=== PATIENT | female | born 1975 | race Caucasian/White ===

== ENCOUNTER 2016-06-12 13:25 | Observation (INO) | payer OTHER ==
[~2016-06-12] VITALS: Ht 162.6 cm; Wt 84.0 kg
[~2016-06-12 13:25] MED LIST: ESTRADIOL2 MG PO; VICODIN EQUIVAL1 TAB PO
--- NOTE | 2016-06-12 16:05 | DIAGNOSTIC IMAGING REPORT ---
PROCEDURE: US ABDOMEN ULTRASOUND-LIMITED INDICATION: RUQ PAIN TECHNIQUE: Delgadillo scale and color Doppler sonographic images of the abdomen were obtained without comparison. COMPARISON: Abdominal CT dated 12/24/2015 FINDINGS: The liver is mildly enlarged and demonstrates increased echogenicity. No mass or intrahepatic biliary dilatation. The gallbladder is contracted. The wall is normal thickness measuring 1.6 mm No pericholecystic fluid or Aleman sign. The extrahepatic common duct is normal measuring 2.1 mm The visualized pancreas is normal without ductal dilatation or peripancreatic fluid collection. The abdominal aorta is normal in its course and caliber. The retrohepatic inferior vena cava is patent. There is appropriate hepatopetal flow in the portal vein. The right kidney measures 10.2 cm in length. There is an 11 mm calculus in the inferior pole of the right kidney. There is no perihepatic or perisplenic ascites. IMPRESSION: 1. Fatty liver. 2. 11 mm right renal calculus.
--- NOTE | 2016-06-12 17:54 | DIAGNOSTIC IMAGING REPORT ---
PROCEDURE: ABDOMEN/PELVIS WITH CONTRAST CLINICAL INDICATION: ABDOMINAL PAIN TECHNIQUE: 125 ml of Isovue 300 were injected intravenously and axial images were obtained of the abdomen and pelvis with sagittal and coronal reformations. COMPARISON: 12/24/2015 FINDINGS: ABDOMEN: Clear lung bases. Normal sized heart. No hiatal hernia. Coarse, nonobstructing 8 mm lower pole right intrarenal calcification. Small collection of punctate lower pole calcifications along the right mid pole calyces. The gallbladder is partially decompressed. No pericholecystic inflammation. There is a tubal ligation clip anterior to the liver. A splenule is seen in the splenic hilum. Surgical staple lines are seen in the left retroperitoneum. Moderate amount of retained solid stool is present in the cecum and proximal colon. No ascending colon diverticulosis or pericolonic inflammation. Normal appendix. The liver, adrenal glands, left kidney, pancreas and spleen are normal. The abdominal aorta is normal in its course and caliber. No atherosclerosis. There are no suspicious calcifications, retroperitoneal adenopathy or masses. The stomach, upper bowel loops, and mesentery are normal. Intact anterior abdominal wall. No free fluid or inflammation. PELVIS: The pelvic small bowel loops are normal. There is a rectosigmoid anastomoses with trace perirectal fat stranding. Tiny perirectal lymph nodes are seen. The rectum is decompressed. Prior tubular, peripherally enhancing fluid collection has resolved. Surgically absent uterus. Residual tubal ligation clip seen. Normal amount of stool in the colon and rectum. The urinary bladder, and pelvic vessels are normal. No adenopathy, free fluid, or pelvic mass. Intact osseous structures. IMPRESSION: 1. No acute process. 2. Partially decompressed gallbladder without inflammation. 3. Moderate amount of retained proximal colon stool. No evidence of colitis or diverticulitis. 4. Sigmoid resection with rectosigmoid reanastomosis. A few residual postsurgical changes are present (lymph nodes and slight fat stranding). 5. Multiple nonobstructing right intrarenal calculi. 6. Discussed with Dr. Madrid in the emergency room. All CT scans at this facility use dose modulation, iterative reconstruction, and/or weight-based dosing when appropriate to reduce radiation dose to as low as reasonably achievable.
--- NOTE | 2016-06-12 18:05 | ED CLINICAL REPORT ---
Clinical Report - Physicians/Mid Levels [facility] [address] [place] [address] 06/12/2016 13:25 Patient: RON GRULLON Time Seen: 14:10 Jun 12 2016. Arrived- By private vehicle. Historian- patient. CPT: ER phys charges level 5 (#[id number]). HISTORY OF PRESENT ILLNESS Chief Complaint: ABDOMINAL PAIN. At its maximum, severity described as 6 / 10. When seen in the E.D., severity described as 6 / 10. Modifying factors- worsened by movement and food. Not relieved by anything. It is described as "pain" and it is described as located in the right upper quadrant and radiating to the upper back and to the right shoulder. 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 Describes the quality as "pain" and ( constant). Relates location as in the right upper quadrant. Provoking / relieving factors: worsened by movement and deep breaths; (better lying on right side, heat). Last oral intake by patient was (eat:1230; drink-1315). and is still present. The patient has had nausea and loss of appetite. No vomiting or diarrhea. Similar symptoms previously: None. Recent medical care: Not recently seen/assessed. REVIEW OF SYSTEMS No constipation, black stools, hematemesis, difficulty with urination or pain with urination. No urinary frequency, fever, sore throat or throat or chest pain. No difficulty breathing, cough, joint pain, skin rash or chills. No back pain, weakness, diabetic symptoms or easy bruising. Denies current . All systems otherwise negative, except as recorded above. PAST HISTORY 12" sigmoid colectomy 6 months ago for diverticulitis. Medications: Vitamin c Oral. [place] Thyroid Oral 60mg, daily. Estradiol Oral (Tablet 0.5 mg) 1 tablet, daily. Klor-Con M20 Oral. Magnesium Oral. Triamterene-HCTZ Oral (Tablet 37.5-25 mg) 1 tablet. Vitamin D Oral 10,000 units. Allergies: Ativan.(jittery) Cipro. Flagyl. PredniSONE. Side-Effect (rapid HR) Sulfa Antibiotics.(rash). SOCIAL HISTORY Never smoker. No alcohol use or drug use. ADDITIONAL NOTES The nursing notes have been reviewed. PHYSICAL EXAM Vital Signs: 06/12/2016 13:34 BP: 125/78. HR: 61. RR: 18. O2 saturation: 100%. Temp: 98.5 F. Pain level now: 7/10. Appearance: Alert. Patient in mild distress. Eyes: Eyes normal inspection. ENT: Pharynx normal. Neck: Normal inspection. CVS: Normal heart rate and rhythm. Heart sounds normal. Pulses normal. Respiratory: No respiratory distress. Breath sounds normal. Chest nontender. Abdomen: Soft. Moderate tenderness in the right upper quadrant with guarding present. Positive Aleman's sign. Abnormal bowel sounds: diminished. No mass. Back: Normal inspection. No CVA tenderness. Skin: Skin warm. Normal skin color. No rash. Extremities: Extremities exhibit normal ROM. No calf tenderness. No lower extremity edema. Neuro: Oriented X 3. No motor deficit. No sensory deficit. LABS, X-RAYS, AND EKG Abdominal CT: Appendix normal. No diverticulitis. Colectomy noted. Moderate retained stool. GB contracted: No apparent abnormalities. Abdominal Sonogram: No acute disease. Laboratory Tests: UA-Culture if indicated: (VICKIE: 06/12/2016 13:50) ( MsgRcvd 06/12/2016 14:39) Final results Test Result Flag Units (Reference) URINE COLOR YELLOW URINE APPEARANCE CLEAR URINE GLUCOSE NEGATIVE (NEGATIVE) URINE BILIRUBIN NEGATIVE (NEGATIVE) URINE KETONE NEGATIVE (NEGATIVE) URINE SPECIFIC GRAVITY 1.010 (1.010-1.030) URINE PH 6.0 (5.0-8.0) URINE PROTEIN NEGATIVE (NEGATIVE) URINE UROBILINOGEN 0.2 EU/dL (0.2-1.0) URINE NITRITE NEGATIVE (NEGATIVE) URINE BLOOD NEGATIVE (NEGATIVE) URINE LEUK ESTERASE NEGATIVE (NEGATIVE) URINE RBC NONE SEEN rbc/hpf (0-1) URINE WBC 0-1 wbc/hpf (0-1) URINE EPITHELIAL CELLS 3-5 EPI/hpf (0-5) URINE BACTERIA FEW (1+) (NONE SEEN) URINE COMMENT CULT NOT INDICATED FEW YEAST/HPFURINE CULTURES ARE SET-UP BASED ON THE FOLLOWING CRITERIA:POSITIVE NITRITEPOSITIVE LEUKOCYTE ESTERASEGREATER THAN 10 WHITE BLOOD CELLSMODERATE (2+) OR GREATER BACTERIA CBC w Diff: (VICKIE: 06/12/2016 13:50) ( MsgRcvd 06/12/2016 14:27) Final results Test Result Flag Units (Reference) WHITE BLOOD COUNT 6.7 K/uL (4.5-11.5) RED BLOOD COUNT 4.39 M/uL (4.00-5.20) HEMOGLOBIN 13.1 gm/dL (12.0-16.0) HEMATOCRIT 38.7 % (36.0-46.0) MEAN CELL VOLUME 88 fL (80-100) MEAN CORPUSCULAR HGB 30 pg (26-34) MEAN CORPUSCULAR HGB CONC 34 g/dL (31-37) RED CELL DISTRIBUTION WIDTH 13.9 % (11.6-14.8) PLATELET COUNT 168 K/uL (150-400) NEUTROPHIL % 62.4 % (50-75) LYMPH % 27.2 % (25-40) MONO % 5.4 % (3-14) EOSINOPHIL % 4.7 H % (0-4) BASOPHIL % 0.3 % (0-2) CMP: (VICKIE: 06/12/2016 13:50) ( MsgRcvd 06/12/2016 15:29) Final results Test Result Flag Units (Reference) LIPASE 238 U/L (73-393) AMYLASE 42 U/L (25-115) GLUCOSE 79 mg/dL (70-110) BUN 17 mg/dL (7-18) CREATININE 0.9 mg/dL (0.6-1.3) Estimated GFR >60 mL/min Estimated GFR- >60 mL/min Note: Persistent reduction over 3 months in eGFR<60 mL/min/1.73 m2 defines CKD. Patients with eGFR values>=60 mL/min/1.73 m2 may also have CKD if evidence ofpersistent proteinuria. Additional information may be foundat www.[email or web address].org. SODIUM 141 mmol/L (136-145) POTASSIUM 3.4 L mmol/L (3.5-5.1) CHLORIDE 104 mmol/L (98-107) CARBON DIOXIDE 29 mmol/L (21-32) CALCIUM 9.1 mg/dL (8.5-10.1) TOTAL PROTEIN 8.2 g/dL (6.4-8.2) ALBUMIN 4.1 g/dL (3.3-5.0) BILIRUBIN, TOTAL 0.3 mg/dL (0.0-1.0) ALKALINE PHOSPHATASE 47 U/L (46-116) AST (SGOT) 21 U/L (15-37) ALT (SGPT) 23 U/L (12-78) . PROGRESS AND PROCEDURES Course of Care: IV normal saline and Demerol 12.5 mg IV plus 25 mg IV Zofran 4 mg IV times 2 White GI cocktail: NO change. Pt clinically has too much clinical pain for discharge , will need admission and surgical evaluation. 18:05 06/12/16. Discussed with Dr Corbett: Requests HIDA scan and am upright with CBC. Discussed with Dr Licea and he will write orders on the patient but will have Dr Corbett as admitting Doctor. Patient/family counseled. Old medical records ordered. Disposition orders written. Disposition: Admitted to Acute Care. CLINICAL IMPRESSION Acute right upper quadrant abdominal pain of unknown cause. (Electronically signed by Zeus Madrid MD 06/13/2016 11:08)
--- NOTE | 2016-06-12 18:05 | ED ORDER SUMMARY ---
..... Patient: RON GRULLON OrderSheet [facility] VisitID: [id number] [place] [address] 41y, F Registration Date/Time: 06/12/2016 ORDER SHEET Weight: 77.1 kg (stated) Allergies: Ativan, PredniSONE, Sulfa Antibiotics, Cipro, Flagyl GENERAL ORDERS: US Abdomen Limited (Yes) Urgent (14:19 06/12/2016 Lefty FORBES) (Ack 14:21 IJurca ER Tech1) (16:01 IJurca ER Tech1) CBC w Diff Urgent (14:20 06/12/2016 Lefty FORBES) (Ack 14:21 IJurca ER Tech1) (Sent 14:21 IJurca ER Tech1) (14:47 EHassan R.N.) CMP Urgent (14:20 06/12/2016 Lefty FORBES) (Ack 14:21 IJurca ER Tech1) (Sent 14:21 IJurca ER Tech1) (14:47 EHassan R.N.) UA-Culture if indicated Urgent (14:20 06/12/2016 Lefty FORBES) (Ack 14:21 IJurca ER Tech1) (Sent 14:21 IJurca ER Tech1) (15:23 RCollier R.N.) Lipase Urgent (14:20 06/12/2016 Lefty FORBES) (Ack 14:21 IJurca ER Tech1) (Sent 14:21 IJurca ER Tech1) (14:47 EHassan R.N.) Amylase Urgent (14:20 06/12/2016 Lefty FORBES) (Ack 14:21 ACACIAurca ER Tech1) (Sent 14:21 IJurca ER Tech1) (14:47 EHassan R.N.) CT Abd/Pel w Cont (No) (N/A) Urgent (17:07 06/12/2016 Lefty FORBES) (Ack 17:09 ACACIAurca ER Tech1) (18:25 Rinku) MEDICATION ORDERS: GI Cocktail WHITE PO 50 mL (NOW) (15:31 06/12/2016 Lefty FORBES) (16:50 EHassan R.N.) IV FLUIDS: IV NS : initial bolus none -, then 250 mL/hr for 4h (NOW); Routine (14:19 06/12/2016 Lefty FORBES) (Ack 14:21 RCollier R.N.) (14:31 RCollier R.N.) Zofran IV 4 mg (NOW) (14:19 06/12/2016 Lefty FORBES) (Ack 14:21 RCollier R.N.) (14:31 RCollier R.N.) Demerol IV 12.5 mg (NOW) (14:20 06/12/2016 Lefty FORBES) (Ack 14:21 RCollier R.N.) (14:32 RCollier R.N.) Demerol IV 25 mg (NOW) (15:31 06/12/2016 Lefty FORBES) (16:49 EHassan R.N.) Zofran IV 4 mg (NOW) (19:04 06/12/2016 Lefty FORBES) (19:12 EHassan R.N.) ORDER SHEET NOTES: [Electronically signed by Rox Gresham R.N. (21:22 06/12/2016)] [Electronically signed by Zeus Madrid MD (11:08 06/13/2016)] [Electronically locked/signed by Rox Gresham R.N. (21:22 06/12/2016)]
--- NOTE | 2016-06-12 18:05 | ED NURSING NOTES ---
Clinical Report - Nurses [facility] [address] [place] [address] 06/12/2016 13:25 Patient: RON GRULLON TRIAGE Triage time 13:34. Acuity: LEVEL 3. Chief Complaint: ABDOMINAL PAIN and NAUSEA. Alert. SEJAL COMA SCORE: Sejal Coma Scale: 15- eyes open spontaneously (4); best verbal response- oriented x 4 (5); best motor response- obeys commands (6). --13:43 Bibi Lu R.N. 13:34 06/12/16. BP: 125/78. HR: 61. RR: 18. O2 saturation: 100% on room air. Temp: 98.5 F (oral). Pain level now: 09/07. --13:43 Bibi Lu R.N. Weight: 77.1 kg stated. Height/Length: 64 inches Per Patient. BMI: 29.2. --13:41 Bibi Lu R.N. Medications [place] Thyroid Oral 60mg, daily. Estradiol Oral (Tablet 0.5 mg) 1 tablet, daily. Klor-Con M20 Oral. Magnesium Oral. Triamterene-HCTZ Oral (Tablet 37.5-25 mg) 1 tablet. Vitamin D Oral 10,000 units. --13:36 Bibi Lu R.N. Vitamin c Oral. --13:36 Bibi Lu R.N. Medication/allergy information source: the patient. --13:43 Bibi Lu R.N. Allergies Ativan.(jittery) PredniSONE. Side-Effect (rapid HR) Sulfa Antibiotics.(rash) --13:36 Bibi Lu R.N. Cipro. Flagyl. --13:36 Bibi Lu R.N. History Arrived by private vehicle. Historian: patient. Unaccompanied. Primary physician (Kylah). Onset. 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 Describes the quality as "pain" and ( constant). Relates location as in the right upper quadrant. Provoking / relieving factors: worsened by movement and deep breaths; (better lying on right side, heat). Last oral intake by patient was (eat:1230; drink-1315). SOCIAL HX: Former smoker. No alcohol use or drug use. FALL RISK ASSESSMENT: Fall risk assessment completed. No fall risk identified. FUNCTIONAL ASSESSMENT: Functional assessment: no impairments noted. LEARNING NEEDS ASSESSMENT: The learning needs assessment revealed no barriers. --13:43 Bibi Lu R.N. PROBLEMS: C. Difficile Colitis. Seasonal allergic rhinitis. Ovarian Torsion. Abdominal Pain. Diverticulitis. Hypokalemia. Ovarian Cyst. --13:38 Bibi Lu R.N. ADDITIONAL SURGERIES: Abominal surgery. Back Surgery. Carpal Tunnel Surgery. Hysterectomy. Laminectomy. Oophorectomy. --13:38 Bibi Lu R.N. Assessment GENERAL / NEURO / PSYCH: The patient is awake and alert, is oriented and cooperative and appears uncomfortable. She has good eye contact. RESPIRATORY: Respirations not labored. SKIN: Skin is warm and dry. --13:43 Bibi Lu R.N. Interventions ID and allergy band on patient. To treatment room. --13:43 Bibi Lu R.N. PHYSICAL ASSESSMENT 13:44 06/12/16. Ambulatory to room. Patient gowned. GENERAL / NEURO / PSYCH: The patient is awake and alert, is oriented and cooperative and appears uncomfortable. She has good eye contact. RESPIRATORY: Respirations not labored. SKIN: Skin is warm and dry. --13:44 Bibi Lu R.N. NURSING PROGRESS NOTES 13:44 06/12/16. Patient gowned. Head of bed elevated. Call light placed in reach. Side rails up x 1. Bed placed in lowest position. Brakes of bed on. --13:44 Bibi Lu R.N. 13:45 06/12/2016 Site #1 started via IV in the right antecubital space with an 20g angiocath; one attempt. Blood drawn: rainbow set. Labeled in the presence of the patient and sent to the lab. Saline lock flushed. --13:50 Rox Gresham R.N. Patient ID band checked for patient name, birthdate and medical record number: patient confirmed. Blood samples drawn from the right antecubital space by nurse per protocol ; labeled in presence of the patient and sent to lab. Blood not drawn from IV site. Reassurance given. Two patient identifiers checked. Call light placed in reach. Side rails up x 1. Bed placed in lowest position. Brakes of bed on. --13:51 Rox Gresham R.N. Patient ID band checked for patient name and birthdate: patient confirmed. Instructions provided to collect clean catch urine and patient verbalized understanding. Clean catch urine collected with return of yellow-colored clear urine; odor is normal; sample sent to lab for urinalysis. Specimen labeled in the presence of the patient. --14:02 Josedebby Pascale <<STRICKEN ENTRY-- 14:53 Entelo @ bedside. Suicide precautions initiated. --14:54 Bibi Lu R.N. --END STRIKE>> Correction --18:31 Bibi Lu R.N. 16:49 06/12/2016 Demerol (Meperidine HCl) IVP 25 mg given over 1 minute(s) via site #1. Allergies verified and confirmed 5 rights. IV patency established. IV site checked: no pain, redness, or swelling. IV flushed thoroughly pre- and post-medication administration. IVP given by RN. --16:49 Rox Gresham R.N. 16:50 06/12/2016 GI Cocktail (Magnesium-Aluminum) PO 50 mL given. Allergies verified and confirmed 5 rights. --16:50 Rox Gresham R.N. 16:51 06/12/16. BP: 119/76. HR: 67. RR: 12. O2 saturation: 100% on room air. Temp: 98.6 F (oral). Pain level now: 09/07. --16:54 Rox Gresham R.N. Reassurance given. Reassessment after medication administered. She is calm and has had no adverse reaction. Overall patient status is the same- she states feels the same. GI / : The patient reports abdominal pain. Patient identifiers checked. Call light placed in reach. Side rails up x 1. --16:54 Rox Gresham R.N. 14:53 Entelo @ bedside. --18:31 Bibi Lu R.N. 18:29 Dr Miller at bedside. --18:30 Bibi Lu R.N. 17:12 06/12/2016 Demerol IVP Response: no adverse reaction symptoms are the same. The patient feels the same. --19:12 Rox Gresham R.N. 19:12 06/12/2016 Zofran (Ondansetron HCl) IVP 4 mg given over 2 minute(s) via site #1. Allergies verified and confirmed 5 rights. IV patency established. IV site checked: no pain, redness, or swelling. IV flushed thoroughly pre- and post-medication administration. IVP given by RN. --19:12 Rox Gresham R.N. 19:15 06/12/16. BP: 108/72. HR: 63. RR: 16. O2 saturation: 100% on room air. Temp: 98.5 F (oral). Pain level now: 08/08. --19:16 Rox Gresham R.N. Reassurance given. Reassessment after fluids administered. She is calm and has had no adverse reaction. GI / : The patient reports nausea. The patient reports abdominal pain. Two patient identifiers checked. Call light placed in reach. Side rails up x 1. Bed placed in lowest position. --19:16 Rox Gresham R.N. 19:44 06/12/2016 Zofran IVP Response: no adverse reaction symptoms are the same. The patient feels the same. --19:54 Rox Gresham R.N. 20:30 06/12/2016 IV Fluids IV NS Continued: at the rate of 250 mL/hr. 800 mL remaining bag #2. IV patency established. IV site checked: no pain, redness, or swelling. IV flushed thoroughly. --21:22 Rox Gresham R.N. DISPOSITION / DISCHARGE 14:26 06/12/2016 Started bag #1 1000 mL IV Fluids IV NS (Saline); at 250 mL/hr via site #1 via IV pump. Allergies verified and confirmed 5 rights. IV patency established. IV site checked: no pain, redness, or swelling. IV flushed thoroughly pre- and post-medication administration. --14:31 Maggie Magdaleno R.N. 14:27 06/12/2016 Zofran (Ondansetron HCl) IVP 4 mg given over 30 second(s) via site #1. Allergies verified and confirmed 5 rights. IV patency established. IV site checked: no pain, redness, or swelling. IV flushed thoroughly pre- and post-medication administration. IVP given by RN. --14:31 Maggie Magdaleno R.N. 14:29 06/12/2016 Demerol (Meperidine HCl) IVP 12.5 mg given over 60 second(s) via site #1. Allergies verified and confirmed 5 rights. IV patency established. IV site checked: no pain, redness, or swelling. IV flushed thoroughly pre- and post-medication administration. IVP given by RN. --14:32 Maggie Magdaleno R.N. 19:51 06/12/2016 Site #1 reassessed; patent, infusing well and no signs of infection or infiltration. Good blood return present. --19:51 Rox Gresham R.N. Departure time: 1952 PM. Condition at departure: stable. The goals identified in the patient's plan of care were met. Disposition: observation in Acute Care (1900 PM). Transported via stretcher by [facility] [facility]. Report was given to a nurse via a fax. Report included patient's care, treatment, medications, reviewed medication reconcilliation, and condition (including any recent changes or anticipated changes). All questions were answered. Report was acknowledged and care was transferred. Patient's personal items include: shirt, pants, dress, skirt, undergarments and shoes, phone and reinforcing rod layer given to pt, purse given to ; items were placed in belongings bag, given to the patient and transported with the patient. FALL RISK ASSESSMENT: Fall risk assessment completed. No fall risk identified. --19:53 Rox Gresham R.N. 19:51 06/12/16. BP: 108/72 (regular adult cuff) taken on the left arm, via an automated monitor, while lying. HR: 87. RR: 14. O2 saturation: 100% on room air. Temp: 98.5 F (oral). Pain level now: 08/08. --19:53 Rox Gresham R.N. Locked/Released at 06/12/2016 21:22 by Rox Gresham R.N.
--- NOTE | 2016-06-12 18:05 | ED CLINICAL REPORT ---
Clinical Report - Physicians/Mid Levels [facility] [address] [place] [address] 06/12/2016 13:25 Patient: RON GRULLON Time Seen: 14:10 Jun 12 2016. Arrived- By private vehicle. Historian- patient. CPT: ER phys charges level 5 (#[id number]). HISTORY OF PRESENT ILLNESS Chief Complaint: ABDOMINAL PAIN. At its maximum, severity described as 6 / 10. When seen in the E.D., severity described as 6 / 10. Modifying factors- worsened by movement and food. Not relieved by anything. It is described as "pain" and it is described as located in the right upper quadrant and radiating to the upper back and to the right shoulder. 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 Describes the quality as "pain" and ( constant). Relates location as in the right upper quadrant. Provoking / relieving factors: worsened by movement and deep breaths; (better lying on right side, heat). Last oral intake by patient was (eat:1230; drink-1315). and is still present. The patient has had nausea and loss of appetite. No vomiting or diarrhea. Similar symptoms previously: None. Recent medical care: Not recently seen/assessed. REVIEW OF SYSTEMS No constipation, black stools, hematemesis, difficulty with urination or pain with urination. No urinary frequency, fever, sore throat or throat or chest pain. No difficulty breathing, cough, joint pain, skin rash or chills. No back pain, weakness, diabetic symptoms or easy bruising. Denies current . All systems otherwise negative, except as recorded above. PAST HISTORY 12" sigmoid colectomy 6 months ago for diverticulitis. Medications: Vitamin c Oral. [place] Thyroid Oral 60mg, daily. Estradiol Oral (Tablet 0.5 mg) 1 tablet, daily. Klor-Con M20 Oral. Magnesium Oral. Triamterene-HCTZ Oral (Tablet 37.5-25 mg) 1 tablet. Vitamin D Oral 10,000 units. Allergies: Ativan.(jittery) Cipro. Flagyl. PredniSONE. Side-Effect (rapid HR) Sulfa Antibiotics.(rash). SOCIAL HISTORY Never smoker. No alcohol use or drug use. ADDITIONAL NOTES The nursing notes have been reviewed. PHYSICAL EXAM Vital Signs: 06/12/2016 13:34 BP: 125/78. HR: 61. RR: 18. O2 saturation: 100%. Temp: 98.5 F. Pain level now: 7/10. Appearance: Alert. Patient in mild distress. Eyes: Eyes normal inspection. ENT: Pharynx normal. Neck: Normal inspection. CVS: Normal heart rate and rhythm. Heart sounds normal. Pulses normal. Respiratory: No respiratory distress. Breath sounds normal. Chest nontender. Abdomen: Soft. Moderate tenderness in the right upper quadrant with guarding present. Positive Aleman's sign. Abnormal bowel sounds: diminished. No mass. Back: Normal inspection. No CVA tenderness. Skin: Skin warm. Normal skin color. No rash. Extremities: Extremities exhibit normal ROM. No calf tenderness. No lower extremity edema. Neuro: Oriented X 3. No motor deficit. No sensory deficit. LABS, X-RAYS, AND EKG Abdominal CT: Appendix normal. No diverticulitis. Colectomy noted. Moderate retained stool. GB contracted: No apparent abnormalities. Abdominal Sonogram: No acute disease. Laboratory Tests: UA-Culture if indicated: (VICKIE: 06/12/2016 13:50) ( MsgRcvd 06/12/2016 14:39) Final results Test Result Flag Units (Reference) URINE COLOR YELLOW URINE APPEARANCE CLEAR URINE GLUCOSE NEGATIVE (NEGATIVE) URINE BILIRUBIN NEGATIVE (NEGATIVE) URINE KETONE NEGATIVE (NEGATIVE) URINE SPECIFIC GRAVITY 1.010 (1.010-1.030) URINE PH 6.0 (5.0-8.0) URINE PROTEIN NEGATIVE (NEGATIVE) URINE UROBILINOGEN 0.2 EU/dL (0.2-1.0) URINE NITRITE NEGATIVE (NEGATIVE) URINE BLOOD NEGATIVE (NEGATIVE) URINE LEUK ESTERASE NEGATIVE (NEGATIVE) URINE RBC NONE SEEN rbc/hpf (0-1) URINE WBC 0-1 wbc/hpf (0-1) URINE EPITHELIAL CELLS 3-5 EPI/hpf (0-5) URINE BACTERIA FEW (1+) (NONE SEEN) URINE COMMENT CULT NOT INDICATED FEW YEAST/HPFURINE CULTURES ARE SET-UP BASED ON THE FOLLOWING CRITERIA:POSITIVE NITRITEPOSITIVE LEUKOCYTE ESTERASEGREATER THAN 10 WHITE BLOOD CELLSMODERATE (2+) OR GREATER BACTERIA CBC w Diff: (VICKIE: 06/12/2016 13:50) ( MsgRcvd 06/12/2016 14:27) Final results Test Result Flag Units (Reference) WHITE BLOOD COUNT 6.7 K/uL (4.5-11.5) RED BLOOD COUNT 4.39 M/uL (4.00-5.20) HEMOGLOBIN 13.1 gm/dL (12.0-16.0) HEMATOCRIT 38.7 % (36.0-46.0) MEAN CELL VOLUME 88 fL (80-100) MEAN CORPUSCULAR HGB 30 pg (26-34) MEAN CORPUSCULAR HGB CONC 34 g/dL (31-37) RED CELL DISTRIBUTION WIDTH 13.9 % (11.6-14.8) PLATELET COUNT 168 K/uL (150-400) NEUTROPHIL % 62.4 % (50-75) LYMPH % 27.2 % (25-40) MONO % 5.4 % (3-14) EOSINOPHIL % 4.7 H % (0-4) BASOPHIL % 0.3 % (0-2) CMP: (VICKIE: 06/12/2016 13:50) ( MsgRcvd 06/12/2016 15:29) Final results Test Result Flag Units (Reference) LIPASE 238 U/L (73-393) AMYLASE 42 U/L (25-115) GLUCOSE 79 mg/dL (70-110) BUN 17 mg/dL (7-18) CREATININE 0.9 mg/dL (0.6-1.3) Estimated GFR >60 mL/min Estimated GFR- >60 mL/min Note: Persistent reduction over 3 months in eGFR<60 mL/min/1.73 m2 defines CKD. Patients with eGFR values>=60 mL/min/1.73 m2 may also have CKD if evidence ofpersistent proteinuria. Additional information may be foundat www.[email or web address].org. SODIUM 141 mmol/L (136-145) POTASSIUM 3.4 L mmol/L (3.5-5.1) CHLORIDE 104 mmol/L (98-107) CARBON DIOXIDE 29 mmol/L (21-32) CALCIUM 9.1 mg/dL (8.5-10.1) TOTAL PROTEIN 8.2 g/dL (6.4-8.2) ALBUMIN 4.1 g/dL (3.3-5.0) BILIRUBIN, TOTAL 0.3 mg/dL (0.0-1.0) ALKALINE PHOSPHATASE 47 U/L (46-116) AST (SGOT) 21 U/L (15-37) ALT (SGPT) 23 U/L (12-78) . PROGRESS AND PROCEDURES Course of Care: IV normal saline and Demerol 12.5 mg IV plus 25 mg IV Zofran 4 mg IV times 2 White GI cocktail: NO change. Pt clinically has too much clinical pain for discharge , will need admission and surgical evaluation. 18:05 06/12/16. Discussed with Dr Corbett: Requests HIDA scan and am upright with CBC. Discussed with Dr Licea and he will write orders on the patient but will have Dr Corbett as admitting Doctor. Patient/family counseled. Old medical records ordered. Disposition orders written. Disposition: Admitted to Acute Care. CLINICAL IMPRESSION Acute right upper quadrant abdominal pain of unknown cause. (Electronically signed by Zeus Madrid MD 06/13/2016 11:08)
--- NOTE | 2016-06-12 18:05 | ED ORDER SUMMARY ---
..... Patient: RON GRULLON OrderSheet [facility] VisitID: [id number] [place] [address] 41y, F Registration Date/Time: 06/12/2016 ORDER SHEET Weight: 77.1 kg (stated) Allergies: Ativan, PredniSONE, Sulfa Antibiotics, Cipro, Flagyl GENERAL ORDERS: US Abdomen Limited (Yes) Urgent (14:19 06/12/2016 Lefty FORBES) (Ack 14:21 IJurca ER Tech1) (16:01 IJurca ER Tech1) CBC w Diff Urgent (14:20 06/12/2016 Lefty FORBES) (Ack 14:21 IJurca ER Tech1) (Sent 14:21 IJurca ER Tech1) (14:47 EHassan R.N.) CMP Urgent (14:20 06/12/2016 Lefty FORBES) (Ack 14:21 IJurca ER Tech1) (Sent 14:21 IJurca ER Tech1) (14:47 EHassan R.N.) UA-Culture if indicated Urgent (14:20 06/12/2016 Lefty FORBES) (Ack 14:21 IJurca ER Tech1) (Sent 14:21 IJurca ER Tech1) (15:23 RCollier R.N.) Lipase Urgent (14:20 06/12/2016 Lefty FORBES) (Ack 14:21 IJurca ER Tech1) (Sent 14:21 IJurca ER Tech1) (14:47 EHassan R.N.) Amylase Urgent (14:20 06/12/2016 Lefty FORBES) (Ack 14:21 ACACIAurca ER Tech1) (Sent 14:21 IJurca ER Tech1) (14:47 EHassan R.N.) CT Abd/Pel w Cont (No) (N/A) Urgent (17:07 06/12/2016 Lefty FORBES) (Ack 17:09 ACACIAurca ER Tech1) (18:25 Rinku) MEDICATION ORDERS: GI Cocktail WHITE PO 50 mL (NOW) (15:31 06/12/2016 Lefty FORBES) (16:50 EHassan R.N.) IV FLUIDS: IV NS : initial bolus none -, then 250 mL/hr for 4h (NOW); Routine (14:19 06/12/2016 Lefty FORBES) (Ack 14:21 RCollier R.N.) (14:31 RCollier R.N.) Zofran IV 4 mg (NOW) (14:19 06/12/2016 Lefty FORBES) (Ack 14:21 RCollier R.N.) (14:31 RCollier R.N.) Demerol IV 12.5 mg (NOW) (14:20 06/12/2016 Lefty FORBES) (Ack 14:21 RCollier R.N.) (14:32 RCollier R.N.) Demerol IV 25 mg (NOW) (15:31 06/12/2016 Lefty FORBES) (16:49 EHassan R.N.) Zofran IV 4 mg (NOW) (19:04 06/12/2016 Lefty FORBES) (19:12 EHassan R.N.) ORDER SHEET NOTES: [Electronically signed by Rox Gresham R.N. (21:22 06/12/2016)] [Electronically signed by Zeus Madrid MD (11:08 06/13/2016)] [Electronically locked/signed by Rox Gresham R.N. (21:22 06/12/2016)]
[2016-06-12 20:00] VITALS: BP 117/78
[2016-06-12] MEDS ORDERED: ESTRACE1 MG PO (20:35)
[2016-06-12] MEDS ORDERED: KLOR-CON 1010 MEQ PO (20:36)
[2016-06-12] MEDS ORDERED: HYD PO (20:37)
[2016-06-12] MEDS ORDERED: VITAMIN D-31000 UNIT PO (20:37)
[2016-06-12] MEDS ORDERED: TRIAMTERENE PO (20:37)
[2016-06-12] MEDS ORDERED: ARMOUR THYROID120 MG (20:38)
[2016-06-12] MEDS ORDERED: CLARITIN10 M2 PO (20:38)
[2016-06-12] MEDS ORDERED: PROBIOTI1 (20:38)
[2016-06-12 22:42] VITALS: BP 105/66
[2016-06-13] VITALS (7 sets, daily range): BP systolic 103–139; BP diastolic 67–85
--- NOTE | 2016-06-13 07:15 | DIAGNOSTIC IMAGING REPORT ---
PROCEDURE: XR ABDOMEN 1 VIEW UPRIGHT INDICATION: ABD PAIN TECHNIQUE: AP upright view. COMPARISON: None. FINDINGS: Decrease bowel gas with mild residual stool. No bowel obstruction, free air or mass. Right upper quadrant artifact. 7 mm calcification projects over the right kidney. Mild degenerative changes of the spine. IMPRESSION: 1. 7 mm probable right renal calculus
--- NOTE | 2016-06-13 08:02 | History & Physical Report ---
Information Source Information Source: Self Reliability: Good History Chief Complaint abdominal pain History of Present Illness Patient is a 41 year old female with a pmh as outlined below that is presenting with a one day history of abdominal pain and nausea. Patient had been in her usual state of health after having a sigmoidectomy in december of last year. However patient would occasionallly have pangs of pain in her ruq, under her ribs that would occur sporadically and resolve without any intervention. Patient continued with her normal routine however the pain she was experiencing was never prolongued and was always self limiting. Patient two days ago noted that she was having persistent right upper quadrant pain and it would occur with pangs of nausea. Patients pain did not resolve at all and kept coming in waves along with the nausea. It was at this point the patient decided to come to the hospital for evaluation/ Patient History 1. Abdominal pain 2. Diverticulitis 3. Fibromyalgia 4. 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 She does not smoke, drink or use illicit substances. She has a remote smoking history, overall a 18 pack year history. She is lives with her and manages all her ADLs indepentely. Medications and Allergies Medications Home Medications HCTZ/Triamterene 25/50 Estradiol 2 mg daily multivitamin Current Medications Sig/Stevo Start time Last Medication Dose Route Stop Time Status Admin Estradiol 2 MG Q2D@0900 06/13 0900 AC PO Hydrochlorothiazide 12.5 MG DAILY 06/13 0900 AC PO Pantoprazole Sodium 40 MG DAILY@0600 06/13 0600 AC Sesquihydrate PO Hydromorphone HCl See Dose Q3H PRN 06/13 0030 06/13 Insts (1) IV 0707 Promethazine HCl 6.25 MG Q6H PRN 06/13 0030 AC IV Acetaminophen 650 MG Q6H PRN 06/12 1914 AC PO Morphine Sulfate 1 MG Q4H PRN 06/12 1914 AC 06/12 IV 205 Sodium Chloride 1,000 ML ASDIRECTED 06/12 1914 AC 06/13 IV 0321 Ondansetron HCl 4 MG Q4H PRN 06/12 1845 AC IV Dose Instructions: (1)Hydromorphone HCl: 0.5 - 1 MG Allergies Coded Allergies: Ciprofloxacin (From CIPRO) (Severe, Rash, HEART PALPITATIONS 06/12/16) Lorazepam (Severe, FROM ED T SYSTEM 02/19/15) Metronidazole (From FLAGYL) (Severe, RASH, HEART PALPITATIONS 06/12/16) Prednisone (Severe, HEART PALPITATIONS 06/12/16) Sulfa Antibiotics (Severe, FROM ED T SYSTEM 02/19/15) Review of Systems Constitutional Chills, Weakness. Denies: Fever, Sweats, Malaise, Other. Eyes Denies: Pain, Vision Change, Conjunctival Inflammation, Eyelid Inflammation, Redness, Other. ENT Denies: Ear Pain, Ear Discharge, Nose Pain, Nasal Discharge, Nasal Congestion, Mouth Pain, Mouth Swelling, Throat Pain, Throat Swelling, Other. Respiratory Denies: Cough, Dry, SOB w/exertion, Wheezing, Hemoptysis, Pleuritic Pain, Sputum , Other. Cardiovascular Denies: Chest Pain, Palpitations, Orthopnea, PND, Edema, Light-headedness, Other. Gastrointestinal Abdominal Pain, Constipation. Denies: Nausea, Vomiting, Diarrhea, Melena, Hematochezia, Other. Genitourinary Denies: Dysuria, Frequency, Incontinence, Hematuria, Retention, Other. Musculoskeletal Denies: Neck Pain, Shoulder Pain, Arm Pain, Back Pain, Hand Pain, Leg Pain, Foot Pain, Other. Skin Denies: Rash, Lesions, Jaundice, Bruising, Other. Neurological Denies: Weakness, Numbness, Incoordination, Change in speech, Confusion, Seizures, Other. Physical Exam Vital Signs / I&Os Vital Signs Date Time Temp Pulse Resp B/P Pulse O2 O2 Flow FiO2 Ox Delivery Rate 06/13 0611 98.4 61 20 112/74 99 Room Air 06/13 0229 97.9 54 18 103/70 100 Room Air 06/12 2242 97.9 51 18 105/66 97 Room Air 06/12 2100 Room Air 06/12 2000 98.2 58 18 117/78 100 I&O 06/12 0800 06/12 1600 06/13 0000 Intake Total 0 Output Total 0 Balance 0 General Appearance Alert, Oriented X3, No acute distress HEENT Atraumatic, PERRLA, Moist mucous membranes Lungs Clear to auscultation Neck Supple, No JVD, No masses Cardiovascular Regular rate and rhythm, Normal S1 and S2, No murmurs, gallops, rubs Abdomen Soft, - RUQ and LLQ tenderness - + [place] sign - surgical scars present Extremities No cyanosis, No clubbing, No edema, Normal pulses, No tenderness Skin No Breakdown, No Significant Lesions Neurological Normal speech, Normal tone, Cranial nerves intact Psych/Mental Status Mood normal LAB Results Laboratory Tests 06/12 06/13 1350 0513 Chemistry Plasma Sodium (136 - 145 mmol/L) 141 144 Plasma Potassium (3.5 - 5.1 mmol/L) 3.4 4.2 Plasma Chloride (98 - 107 mmol/L) 104 110 CO2 (Enzymatic) (21 - 32 mmol/L) 29 27 BUN (7 - 18 mg/dL) 17 15 Creatinine (0.6 - 1.3 mg/dL) 0.9 1.0 Est GFR ( Amer) (mL/min) >60 >60 Est GFR (Non-Af Amer) (mL/min) >60 >60 Glucose (70 - 110 mg/dL) 79 83 Plasma Calcium (8.5 - 10.1 mg/dL) 9.1 8.0 Plasma Magnesium (1.8 - 2.4 mg/dL) 2.1 Total Bilirubin (0.0 - 1.0 mg/dL) 0.3 0.3 AST (15 - 37 U/L) 21 15 ALT (12 - 78 U/L) 23 23 Alkaline Phosphatase (46 - 116 U/L) 47 36 Total Protein (6.4 - 8.2 g/dL) 8.2 6.3 Albumin (3.3 - 5.0 g/dL) 4.1 3.1 Amylase (25 - 115 U/L) 42 Lipase (73 - 393 U/L) 238 Hematology WBC (4.5 - 11.5 K/uL) 6.7 6.2 RBC (4.00 - 5.20 M/uL) 4.39 3.90 Hgb (12.0 - 16.0 gm/dL) 13.1 11.6 Hct (36.0 - 46.0 %) 38.7 34.4 MCV (80 - 100 fL) 88 88 MCH (26 - 34 pg) 30 30 RDW (11.6 - 14.8 %) 13.9 13.6 Neut % (Auto) (50 - 75 %) 62.4 53.1 Lymph % (Auto) (25 - 40 %) 27.2 35.8 [place] % (Auto) (3 - 14 %) 5.4 5.7 Eos % (Auto) (0 - 4 %) 4.7 5.1 Baso % (Auto) (0 - 2 %) 0.3 0.3 Plt Count, EDTA (150 - 400 K/uL) 168 135 PUBS MCHC (31 - 37 g/dL) 34 34 Urines Urine Color YELLOW Urine Appearance CLEAR Urine pH (5.0 - 8.0) 6.0 Ur Specific [place] (1.010 - 1.030) 1.010 Urine Protein (NEGATIVE) NEGATIVE Urine Ketones (NEGATIVE) NEGATIVE Urine Blood (NEGATIVE) NEGATIVE Urine Nitrite (NEGATIVE) NEGATIVE Urine Bilirubin (NEGATIVE) NEGATIVE Urine Urobilinogen (0.2 - 1.0 EU/dL) 0.2 Ur Leukocyte Esterase (NEGATIVE) NEGATIVE Urine RBC (0 - 1 rbc/hpf) NONE SEEN Urine WBC (0 - 1 wbc/hpf) 0-1 Ur Epithelial Cells (0 - 5 EPI/hpf) 3-5 Urine Bacteria (NONE SEEN) FEW (1+) Urine Glucose (NEGATIVE) NEGATIVE Urine Comment CULT NOT INDICATED Assessment and Plan Problem List 1. Abdominal pain Plan - patient has persistent right upper quadrant pain - no change in liver function tests or bilirubin - no radiological evidence of any pathology present - will continue to monitor - surgery consult 2. Hypertension Plan - will continue with home meds
--- NOTE | 2016-06-13 09:59 | Consultation Report ---
History Chief Complaint Abdominal pain History of Present Illness 41-year-old female who was admitted to [facility] via the emergency room. Patient states that she developed acute onset of right-sided abdominal pain that radiated into her right shoulder and upper back approximately 3 days prior to admission. She described the pain as being sharp stabbing worsened with taking a deep breath. Nausea with eating. He complained of a distended abdomen. No vomiting. No diarrhea. The day of admission after eating a marmalade and avocado sandwich, she developed nausea and pain which she described as sharp/ dull and located in the right upper quadrant. No fever no chills. Patient states that she's had similar complaints after eating a greasy meal during the last year. PAST MEDICAL/SURGICAL: Patient is followed by Dr. Montero at the [facility] Status post uterine ablation. Status post vaginal hysterectomy 2010. Status post right oophorectomy May 2015. Status post left oophorectomy January 2016. Status post carpal tunnel release 2013. Status post laparoscopic low anterior resection November 2015 [facility]. Chronic diverticulitis. Patient History 1. Abdominal pain Social History . One son and 1 daughter alive and well. Does not smoke. Does not drink alcohol. Does not use recreational drugs. 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 Lives in [place]. Family physician Dr[facility] whom she last saw aweek ago. FAMILY HISTORY: Mother age 64 history of RI and hypertension. Father age 65 good health. Patient has no brothers or sisters. Medications and Allergies Medications Current Medications Sig/Stevo Start time Last Medication Dose Route Stop Time Status Admin Estradiol 2 MG Q2D@06/13 09 AC PO Hydrochlorothiazide 12.5 MG DAILY 06/13 899 AC PO Pantoprazole Sodium 40 MG DAILY@06/13 06 AC Sesquihydrate PO Hydromorphone HCl See Dose Q3H PRN 06/13 29 AC 06/13 Insts (1) IV 0707 Promethazine HCl 6.25 MG Q6H PRN 06/13 29 AC IV Acetaminophen 650 MG Q6H PRN 06/12 1914 AC PO Morphine Sulfate 1 MG Q4H PRN 06/12 1914 AC 06/12 IV 205 Sodium Chloride 1,000 ML ASDIRECTED 06/12 1914 AC 06/13 IV 0321 Ondansetron HCl 4 MG Q4H PRN 06/12 1845 AC IV Dose Instructions: (1)Hydromorphone HCl: 0.5 - 1 MG Allergies Coded Allergies: Ciprofloxacin (From CIPRO) (Severe, Rash, HEART PALPITATIONS 06/12/16) Lorazepam (Severe, FROM ED T SYSTEM 02/19/15) Metronidazole (From FLAGYL) (Severe, RASH, HEART PALPITATIONS 06/12/16) Prednisone (Severe, HEART PALPITATIONS 06/12/16) Sulfa Antibiotics (Severe, FROM ED T SYSTEM 02/19/15) Review of Systems Other AB 2. Menarche age 8. First full term age 19. Last menstrual period 2009. Last Pap smear 2010. Last mammogram 2 years ago. Last colonoscopy 3 years ago. Remaining 12 point review of systems is negative. Physical Exam Vital Signs / I&Os Vital Signs Date Time Temp Pulse Resp B/P Pulse O2 O2 Flow FiO2 Ox Delivery Rate 06/13 0800 Room Air 0.0 I&O 06/12 0800 06/12 1600 06/13 0000 Intake Total 0 Output Total 0 Balance 0 General Appearance Alert, Oriented X3, No acute distress HEENT Normal exam, Atraumatic, Moist mucous membranes Lungs Clear to auscultation Neck Supple, No JVD, No thyromegaly Cardiovascular Regular rate and rhythm Abdomen Normal bowel sounds, nondistended, tenderness right lower quadrant. Right upper quadrant no masses or tenderness to palpation. No epigastric discomfort to palpation. Extremities No edema, extensive tattooing right upper extremity. Skin no peripheral cyanosis Neurological no focal motor neurological deficits Psych/Mental Status Mood normal LAB Results Laboratory Tests 06/12 06/13 1350 0513 Chemistry Plasma Sodium (136 - 145 mmol/L) 141 144 Plasma Potassium (3.5 - 5.1 mmol/L) 3.4 4.2 Plasma Chloride (98 - 107 mmol/L) 104 110 CO2 (Enzymatic) (21 - 32 mmol/L) 29 27 BUN (7 - 18 mg/dL) 17 15 Creatinine (0.6 - 1.3 mg/dL) 0.9 1.0 Est GFR ( Amer) (mL/min) >60 >60 Est GFR (Non-Af Amer) (mL/min) >60 >60 Glucose (70 - 110 mg/dL) 79 83 Plasma Calcium (8.5 - 10.1 mg/dL) 9.1 8.0 Plasma Magnesium (1.8 - 2.4 mg/dL) 2.1 Total Bilirubin (0.0 - 1.0 mg/dL) 0.3 0.3 AST (15 - 37 U/L) 21 15 ALT (12 - 78 U/L) 23 23 Alkaline Phosphatase (46 - 116 U/L) 47 36 Total Protein (6.4 - 8.2 g/dL) 8.2 6.3 Albumin (3.3 - 5.0 g/dL) 4.1 3.1 Amylase (25 - 115 U/L) 42 Lipase (73 - 393 U/L) 238 Hematology WBC (4.5 - 11.5 K/uL) 6.7 6.2 RBC (4.00 - 5.20 M/uL) 4.39 3.90 Hgb (12.0 - 16.0 gm/dL) 13.1 11.6 Hct (36.0 - 46.0 %) 38.7 34.4 MCV (80 - 100 fL) 88 88 MCH (26 - 34 pg) 30 30 RDW (11.6 - 14.8 %) 13.9 13.6 Neut % (Auto) (50 - 75 %) 62.4 53.1 Lymph % (Auto) (25 - 40 %) 27.2 35.8 [place] % (Auto) (3 - 14 %) 5.4 5.7 Eos % (Auto) (0 - 4 %) 4.7 5.1 Baso % (Auto) (0 - 2 %) 0.3 0.3 Plt Count, EDTA (150 - 400 K/uL) 168 135 PUBS MCHC (31 - 37 g/dL) 34 34 Urines Urine Color YELLOW Urine Appearance CLEAR Urine pH (5.0 - 8.0) 6.0 Ur Specific [place] (1.010 - 1.030) 1.010 Urine Protein (NEGATIVE) NEGATIVE Urine Ketones (NEGATIVE) NEGATIVE Urine Blood (NEGATIVE) NEGATIVE Urine Nitrite (NEGATIVE) NEGATIVE Urine Bilirubin (NEGATIVE) NEGATIVE Urine Urobilinogen (0.2 - 1.0 EU/dL) 0.2 Ur Leukocyte Esterase (NEGATIVE) NEGATIVE Urine RBC (0 - 1 rbc/hpf) NONE SEEN Urine WBC (0 - 1 wbc/hpf) 0-1 Ur Epithelial Cells (0 - 5 EPI/hpf) 3-5 Urine Bacteria (NONE SEEN) FEW (1+) Urine Glucose (NEGATIVE) NEGATIVE Urine Comment CULT NOT INDICATED Imaging CT and ultrasound shows gallbladder to be decompressed, normal wall thickening, no pericholecystic fluid and a negative Aleman sign. No active inflammatory changes within the abdomen. Patient is noted to have multiple nonobstructing calculi right kidney. Assessment and Plan Problem List 1. Abdominal pain Plan No evidence of acute cholecystitis. Patient has a history consistent with gallbladder disease. We will order a HIDA scan on the patient with ejection fraction. Unfortunately the patient is on morphine and Dilaudid which could skew our exam results. Patient has chronic right renal calculi. The discomfort could be related to that although she's never had pain before.
--- NOTE | 2016-06-13 11:08 | ED MAR SUMMARY ---
..... Medication Administration Record [facility] [address] [place] [address] Patient: RON GRULLON Visit ID: [id number] 41y, F Weight: 77.1 kg Height/Length: 64 in BMI: 29.2 ALLERGIES: Cipro, Flagyl, Ativan, PredniSONE, Sulfa Antibiotics Start 14:26 06/12/2016 Maggie Magdaleno R.N., Continued Upon Disposition 20:30 06/12/2016 Rox Gresham R.N. Medication Administered: IV NS (SALINE), Dose: IV Fluids, Rate: 250 mL/hr, Dispensed: 1000 mL bag, Site: #1 right AC. Medication Ordered: IV NS : initial bolus none -, then 250 mL/hr for 4h (NOW); Routine. Given 14:27 06/12/2016 Maggie Magdaleno R.N. Medication Administered: ZOFRAN [IVP] (ONDANSETRON HCL), Dose: 4 mg IVP over 30 second(s), Site: #1 right AC. Medication Ordered: Zofran IV 4 mg (NOW). Given 14:29 06/12/2016 Maggie Magdaleno R.N. Medication Administered: DEMEROL [IVP] (MEPERIDINE HCL), Dose: 12.5 mg IVP over 60 second(s), Site: #1 right AC. Medication Ordered: Demerol IV 12.5 mg (NOW). Given 16:49 06/12/2016 Rox Gresham R.N. Medication Administered: DEMEROL [IVP] (MEPERIDINE HCL), Dose: 25 mg IVP over 1 minute(s), Site: #1 right AC. Medication Ordered: Demerol IV 25 mg (NOW). Given 16:50 06/12/2016 Rox Gresham R.N. Medication Administered: GI COCKTAIL [PO] (MAGNESIUM-ALUMINUM), Dose: 50 mL PO. Medication Ordered: GI Cocktail WHITE PO 50 mL (NOW). Given 19:12 06/12/2016 Rox Gresham R.N. Medication Administered: ZOFRAN [IVP] (ONDANSETRON HCL), Dose: 4 mg IVP over 2 minute(s), Site: #1 right AC. Medication Ordered: Zofran IV 4 mg (NOW).
--- NOTE | 2016-06-13 11:08 | ED MAR SUMMARY ---
..... Medication Administration Record [facility] [address] [place] [address] Patient: RON GRULLON Visit ID: [id number] 41y, F Weight: 77.1 kg Height/Length: 64 in BMI: 29.2 ALLERGIES: Cipro, Flagyl, Ativan, PredniSONE, Sulfa Antibiotics Start 14:26 06/12/2016 Maggie Magdaleno R.N., Continued Upon Disposition 20:30 06/12/2016 Rox Gresham R.N. Medication Administered: IV NS (SALINE), Dose: IV Fluids, Rate: 250 mL/hr, Dispensed: 1000 mL bag, Site: #1 right AC. Medication Ordered: IV NS : initial bolus none -, then 250 mL/hr for 4h (NOW); Routine. Given 14:27 06/12/2016 Maggie Magdaleno R.N. Medication Administered: ZOFRAN [IVP] (ONDANSETRON HCL), Dose: 4 mg IVP over 30 second(s), Site: #1 right AC. Medication Ordered: Zofran IV 4 mg (NOW). Given 14:29 06/12/2016 Maggie Magdaleno R.N. Medication Administered: DEMEROL [IVP] (MEPERIDINE HCL), Dose: 12.5 mg IVP over 60 second(s), Site: #1 right AC. Medication Ordered: Demerol IV 12.5 mg (NOW). Given 16:49 06/12/2016 Rox Gresham R.N. Medication Administered: DEMEROL [IVP] (MEPERIDINE HCL), Dose: 25 mg IVP over 1 minute(s), Site: #1 right AC. Medication Ordered: Demerol IV 25 mg (NOW). Given 16:50 06/12/2016 Rox Gresham R.N. Medication Administered: GI COCKTAIL [PO] (MAGNESIUM-ALUMINUM), Dose: 50 mL PO. Medication Ordered: GI Cocktail WHITE PO 50 mL (NOW). Given 19:12 06/12/2016 Rox Gresham R.N. Medication Administered: ZOFRAN [IVP] (ONDANSETRON HCL), Dose: 4 mg IVP over 2 minute(s), Site: #1 right AC. Medication Ordered: Zofran IV 4 mg (NOW).
--- NOTE | 2016-06-13 11:08 | ED MED RECONCILIATION SUMMARY ---
Patient: RON GRULLON Medication Reconciliation Report [facility] VisitID: [id number] [address] [place] [address] 41y, F Registration Date/Time: 06/12/2016 Weight: 77.1 kg Height/Length: 64 in. BMI: 29.2 ALLERGIES: Ativan, Cipro, Flagyl, PredniSONE, Sulfa Antibiotics The patient's Home Medications are listed below: THE FOLLOWING MEDICATIONS NEED TO BE RECONCILED: [place] Thyroid Oral 60mg, daily Estradiol Oral (0.5 mg) 1 tablet, daily Klor-Con M20 Oral Magnesium Oral Triamterene-HCTZ Oral (37.5-25 mg) 1 tablet Vitamin c Oral Vitamin D Oral 10,000 units The source(s) of the original Home Medication information: patient The following Medications were given to the patient in the Emergency Department: IV NS IV Fluids bolus 0, then 250 mL/hr, administered: 06/12/2016 2:26:00 PM Zofran [IVP] IVP 4 mg, administered: 06/12/2016 2:27:00 PM Demerol [IVP] IVP 12.5 mg, administered: 06/12/2016 2:29:00 PM Demerol [IVP] IVP 25 mg, administered: 06/12/2016 4:49:00 PM GI Cocktail [PO] PO 50 mL, administered: 06/12/2016 4:50:00 PM Zofran [IVP] IVP 4 mg, administered: 06/12/2016 7:12:00 PM The following Medications were prescribed to the patient: None.
--- NOTE | 2016-06-13 11:08 | ED MED RECONCILIATION SUMMARY ---
Patient: RON GRULLON Medication Reconciliation Report [facility] VisitID: [id number] [address] [place] [address] 41y, F Registration Date/Time: 06/12/2016 Weight: 77.1 kg Height/Length: 64 in. BMI: 29.2 ALLERGIES: Ativan, Cipro, Flagyl, PredniSONE, Sulfa Antibiotics The patient's Home Medications are listed below: THE FOLLOWING MEDICATIONS NEED TO BE RECONCILED: [place] Thyroid Oral 60mg, daily Estradiol Oral (0.5 mg) 1 tablet, daily Klor-Con M20 Oral Magnesium Oral Triamterene-HCTZ Oral (37.5-25 mg) 1 tablet Vitamin c Oral Vitamin D Oral 10,000 units The source(s) of the original Home Medication information: patient The following Medications were given to the patient in the Emergency Department: IV NS IV Fluids bolus 0, then 250 mL/hr, administered: 06/12/2016 2:26:00 PM Zofran [IVP] IVP 4 mg, administered: 06/12/2016 2:27:00 PM Demerol [IVP] IVP 12.5 mg, administered: 06/12/2016 2:29:00 PM Demerol [IVP] IVP 25 mg, administered: 06/12/2016 4:49:00 PM GI Cocktail [PO] PO 50 mL, administered: 06/12/2016 4:50:00 PM Zofran [IVP] IVP 4 mg, administered: 06/12/2016 7:12:00 PM The following Medications were prescribed to the patient: None.
--- NOTE | 2016-06-13 11:08 | ED DISCHARGE INSTRUCTIONS ---
Patient: RON GRULLON General Instructions [facility] VisitID: [id number] [place] [address] 41y, F Registration Date/Time: 06/12/2016 Acute right upper quadrant abdominal pain of unknown cause. ADDITIONAL INFORMATION Abdominal Pain, Unknown Cause (Female) The exact cause of your abdominal (stomach) pain is not certain. This does not mean that this is something to worry about, or the right tests were not done. Everyone likes to know the exact cause of the problem, but sometimes with abdominal pain, there is no clear-cut cause, and this could be a good thing. The good news is that your symptoms can be treated, and you will feel better. Your condition does not seem serious now; however, sometimes the signs of a serious problem may take more time to appear. For this reason,it is important for you to watch for any new symptoms, problems,or worsening of your condition. Over the next few days, the abdominal pain may come and go, or be continuous. Other common symptoms can include nausea and vomiting. Sometimes it can be difficult to tell if you feel nauseous, you may just feel bad and not associate that feeling with nausea. Constipation, diarrhea, and a fever may go along with the pain. The pain may continue even if treated correctly over the following days. Depending on how things go, sometimes the cause can become clear and may require further or different treatment. Additional evaluations, medications, or tests may be needed. Home care Your health care provider may prescribe medications for pain, symptoms, or an infection. Follow the health care provider's instructions for taking these medications. General care Rest until your next exam. No strenuous activities. Try to find positions that ease discomfort. A small pillow placed on the abdomen may help relieve pain. Something warm on your abdomen (such as a heating pad) may help, but be careful not to burn yourself. Diet Do not force yourself to eat, especially if having cramps, vomiting, or diarrhea. Water is important so you do not get dehydrated. Soup may also be good. Sports drinks may also help, especially if they are not too acidic. Make sure you don't drink sugary drinks as this can make things worse. Take liquids in small amounts. Do not guzzle them. Caffeine sometimes makes the pain and cramping worse. Avoid dairy products if you have vomiting or diarrhea. Don't eat large amounts at a time. Wait a few minutes between bites. Eat a diet low in fiber (called a low-residue diet). Foods allowed include refined breads, white rice, fruit and vegetable juices without pulp, tender meats. These foods will pass more easily through the intestine. Avoid whole-grain foods, whole fruits and vegetables, meats, seeds and nuts, fried or fatty foods, dairy, alcohol and spicy foods until your symptoms go away. Follow-up care Follow up with your health care provider as instructed, or if your pain does not begin to improve in the next 24 hours. When to seek medical care Seek prompt medical care if any of the following occur: Pain gets worse or moves to the right lower abdomen New or worsening vomiting or diarrhea Swelling of the abdomen Unable to pass stool for more than three days Fever of 100.4F (38C) or higher, or as directed by your healthcare provider. Blood in vomit or bowel movements (dark red or black color) Jaundice (yellow color of eyes and skin) Weakness, dizziness Chest, arm, back, neck or jaw pain Unexpected vaginal bleeding or missed period Call 911 Call emergency services if any of the following occur: Trouble breathing Confusion Fainting or loss of consciousness Rapid heart rate Seizure You have been given the following additional information: Abdominal Pain, Unknown Cause, (Female) (Electronically signed by Zeus Madrid MD 06/13/2016 11:08)
--- NOTE | 2016-06-13 15:13 | DIAGNOSTIC IMAGING REPORT ---
PROCEDURE: NM HEPATOBILIARY IMAGING INDICATION: abdominal pain TECHNIQUE: 8 mCi of technetium-99m Choletec was injected intravenously and images were acquired over a one hour time interval. Subsequently, 1.5 mcg of cholecystokinin (Kinevac) was injected with calculation of gallbladder ejection fraction. COMPARISON: CT abdomen pelvis and abdominal ultrasound 06/12/2016. FINDINGS: Homogeneous radiotracer uptake throughout the liver. Gallbladder is first visualized at 10 minutes. Small bowel activity is seen at 54 minutes. Administration of cholecystokinin demonstrates ejection fraction of 33% at 20 minutes, 65% at 40 minutes and 65% at 60 minutes. IMPRESSION: 1. Normal hepatobiliary scan and gallbladder ejection fraction 2. Results discussed with Dr. Miller
[2016-06-13] MEDS ORDERED: PANTOPRAZOLE SO40 MG PO (17:54)
--- NOTE | 2016-06-13 17:55 | Provider's Discharge Care Plan ---
Problem, Goal, Plan Problem List 1. Duodenitis Instructions: - avoid inflammatory foods - take medication as prescribed - increase your exercise tolerance 2. Hypertension Instructions: Take meds as directed
--- NOTE | 2016-06-13 18:04 | Discharge Summary ---
Discharge Summary Report Admit Date 06/12/16 Discharge Date 06/13/16 Admission Diagnosis abdominal pain Discharge Diagnosis duodenitis Brief History please refer to admission H&P Hospital Course Pateint was admitted for abdominal pain. Patients initial labs did not show any evidence of any pathology in the right upper quadrant which is the area she had the most pain. Patient additionally had no evidence of pathology on CT scan and Ultrasound except for a renal calculi that she knew from before. Patient additionally had no evidence of change of liver enzymes, or change in white blood cell count. Patient was admitted for observation. Patient did not have any further change in her blood work after the first night. Patient had a HIDA scan which did not reveal any gallbladder dysfunction. Patient additionally went for an EGD which showed the presence of duodenitis. At this point patients pain is well controlled and she is otherwise doing well and tolerating a diet. Patient will be discharged home, she will resume her home medications and start pantaprazole. Patient will follow up with her primary care doctor in 2 weeks. General Appearance Alert, Oriented X3, No acute distress HEENT PERRLA, EOMI, Mucous membran moist/pink Lungs Normal air movement Abdomen Soft, No tenderness Skin No Breakdown, No Significant Lesions Lab/Imaging Laboratory Tests 06/13 512 Chemistry Plasma Sodium (136 - 145 mmol/L) 144 Plasma Potassium (3.5 - 5.1 mmol/L) 4.2 Plasma Chloride (98 - 107 mmol/L) 110 CO2 (Enzymatic) (21 - 32 mmol/L) 27 BUN (7 - 18 mg/dL) 15 Creatinine (0.6 - 1.3 mg/dL) 1.0 Est GFR ( Amer) (mL/min) >60 Est GFR (Non-Af Amer) (mL/min) >60 Glucose (70 - 110 mg/dL) 83 Plasma Calcium (8.5 - 10.1 mg/dL) 8.0 Plasma Magnesium (1.8 - 2.4 mg/dL) 2.1 Total Bilirubin (0.0 - 1.0 mg/dL) 0.3 AST (15 - 37 U/L) 15 ALT (12 - 78 U/L) 23 Alkaline Phosphatase (46 - 116 U/L) 36 Total Protein (6.4 - 8.2 g/dL) 6.3 Albumin (3.3 - 5.0 g/dL) 3.1 Hematology WBC (4.5 - 11.5 K/uL) 6.2 RBC (4.00 - 5.20 M/uL) 3.90 Hgb (12.0 - 16.0 gm/dL) 11.6 Hct (36.0 - 46.0 %) 34.4 MCV (80 - 100 fL) 88 MCH (26 - 34 pg) 30 RDW (11.6 - 14.8 %) 13.6 Neut % (Auto) (50 - 75 %) 53.1 Lymph % (Auto) (25 - 40 %) 35.8 [place] % (Auto) (3 - 14 %) 5.7 Eos % (Auto) (0 - 4 %) 5.1 Baso % (Auto) (0 - 2 %) 0.3 Plt Count, EDTA (150 - 400 K/uL) 135 PUBS MCHC (31 - 37 g/dL) 34 Microbiology Date/Time Procedure - Status Source Growth 06/13 1629 CLOtest - RECD GASTRIC Discharge Instructions/Meds - take medications as prescribed - follow up with you primary doctor - avoid foods which may cause inflammatory conidtions.
--- NOTE | 2016-06-13 19:01 | OPERATIVE REPORT ---
DATE OF SURGERY: 06/13/2016 SURGEON: Ligia Corbett III, MD [employer] HAND: None. PREOPERATIVE DIAGNOSIS: 1. Rule out peptic ulcer disease POSTOPERATIVE DIAGNOSES: 1. Duodenitis 2. Antral inflammation 3. Small sliding hiatal hernia PROCEDURE PERFORMED: 1. Upper gastrointestinal endoscopy with duodenal gastric biopsies ANESTHESIA: TIVA, posterior pharynx Cetacaine spray. INDICATIONS: The patient is a 41-year-old female admitted to [facility] with acute-onset epigastric right upper quadrant abdominal pain radiating into her back. All her labs were normal. CAT scan was unremarkable including ultrasound of her gallbladder which was negative for cholecystitis, cholelithiasis. This was then followed by a HIDA scan of her gallbladder which was normal, and an ejection fraction of 66%. She was scheduled for upper GI endoscopy to rule out peptic ulcer disease. SURGICAL FINDINGS: Normal-appearing duodenum. The duodenal bulb appeared to be inflamed. The antrum appeared to be mildly inflamed as well. The remaining stomach appeared grossly normal. The EG junction was approximately 35 cm from dental incisors. She was noted to have a small sliding hiatal hernia. The esophagus appeared grossly normal. SURGICAL TECHNIQUE: The patient was brought to the operating room and placed in the left lateral decubitus position, where she was administered TIVA and monitored closely by Anesthesia. After proper anesthesia had taken effect, her posterior pharynx was sprayed with Cetacaine spray, after which an Olympus fiberoptic video flexible upper GI endoscope was passed down the patient's posterior pharynx. The esophagus intubated under direct visualization. The scope passed easily down the esophagus, through the EG junction, which was approximately 35 cm from the dental incisors. Once entering the gastric lumen. The scope was then passed through the pylorus into the second and third portions of the duodenum. On withdrawing the scope, the aforementioned findings noted. Multiple biopsies were obtained of the duodenum to rule out duodenitis. There was no gross evidence of a true crater; i.e., ulcer. The scope was withdrawn into the gastric lumen where multiple biopsies were obtained of the antrum. The antrum appeared to have erythematous striae consistent with antritis. The remaining greater and lesser curvature, fundus, cardia, and EG junction from below appeared grossly normal. The scope was withdrawn through the EG junction, where the esophagus appeared grossly normal with no evidence of esophagitis. The scope was completely withdrawn. The patient tolerated the procedure well and was transferred to the recovery room in stable condition. There were no intraoperative or anesthetic complications.
== END 2016-06-13 18:50 | disposition home or self-care (01) ==
LOC: ED SRH 13:25 → TRANS SRH 18:13 → ACUTE2 SRH 19:49
PROVIDERS: Specialist; ADMIT Emergency Medicine
PROC: 0DB78ZZ Excision of Stomach, Pylorus, Via Natural or Artificial Opening Endoscopic (ICD-10-PCS; principal; 2016-06-13 16:30)
PROC: 0DB98ZX Excision of Duodenum, Via Natural or Artificial Opening Endoscopic, Diagnostic (ICD-10-PCS; principal; 2016-06-13 16:30)
DX: K29.80 Duodenitis without bleeding (principal); K29.60 Other gastritis without bleeding; K44.9 Diaphragmatic hernia without obstruction or gangrene; I10 Essential (primary) hypertension; M79.7 Fibromyalgia
CPT/HCPCS: 29229; 29230; 29259; 29264; 50004; 60001; 82943; 83526; 90004; 90074; 90100; 90705; 92235; 92530; 92720; 95059